=== PATIENT | female | born 1965 | race American Indian/Alaskan Native ===

== ENCOUNTER 2019-05-04 09:38 | Day surgery (SDC) | payer BC ==
[2019-05-04] MEDS ORDERED: MIDAZOLAM 2 MG/2 ML INJ IV NR (10:00)
[2019-05-04] MEDS ORDERED: LACTATED RINGERS 1,000 ML IV SCH (10:00)
--- NOTE | 2019-05-04 10:03 | Anesthesia Consultation ---
Anesthesia Consult and Med Hx Date of service: 05/04/19 - Airway Anesthetic Teeth Evaluation: Good ROM Head & Neck: Adequate Mental/Hyoid Distance: Adequate Mallampati Class: Class III Intubation Access Assessment: Possibly Difficult - Pulmonary Exam CTA: Yes - Cardiac Exam Cardiac Exam: RRR - Pre-Operative Health Status ASA Pre-Surgery Classification: ASA2 Proposed Anesthetic Plan: General - Pulmonary Hx Smoking: Yes (quit 2007) Hx Respiratory Symptoms: No Hx Sleep Apnea: No (NAVI PRE SCREEN HIGH RISK) - Cardiovascular System Hx Hypertension: No Hx Heart Attack/AMI: No - Central Nervous System CVA: No Hx Psychiatric Problems: No - Gastrointestinal Hx Gastroesophageal Reflux Disease: No - Endocrine Hx Renal Disease: No (hydronephrosis; denies hx renal insufficiency) Hx Liver Disease: No Hx Insulin Dependent Diabetes: No Hx Non-Insulin Dependent Diabetes: No Hx Thyroid Disease: No - Hematic Hx Anemia: No - Other Systems Hx Obesity: Yes (BMI 36.5) - Additional Comments Anesthesia Medical History Comments: No hx anesthetic complications. Has had GA before but unsure if she has received propofol or had reaction to propofol in the past.
--- NOTE | 2019-05-04 10:03 | Anesthesia Day of Surgery ---
Anesthesia Day of Surgery - Day of Surgery Patient Examined: Yes Patient H&P Reviewed: Yes Patient is NPO: Yes
[2019-05-04] MEDS ORDERED: HYDROmorphone 1 MG/1 ML INJ ONE (10:35)
[2019-05-04] MEDS ORDERED: PROPOFOL 200 MG/20 ML VIAL IV ONE (10:35)
[2019-05-04] MEDS ORDERED: LIDOCAINE MPF (2%) 20 MG/1 ML VIAL 5 ML ONE (10:37)
--- NOTE | 2019-05-04 11:40 | Discharge Summary ---
Short Stay Discharge Plan Activity: other Weight Bearing Status: Full Weight Bearing Diet: low fat, low cholesterol, low salt Special Instructions: other (inc fluids ) Durable Medical Equipment Needed Upon Discharge: other (has stent ) Follow up with: PRIMARY CAREMD [Primary Care Provider] - 7 Days JULIAN KANG MD [Staff Physician] - 14 Days
--- NOTE | 2019-05-04 11:41 | Post Operative Note ---
Date of procedure: 05/04/19 Pre-op diagnosis: hydro Post-op diagnosis: same Findings: same Procedure: cysto rpgs NO STENT PLACED Anesthesia: CARLOS Surgeon: JULIAN KANG Estimated blood loss: none Condition: stable Disposition: PACU
[2019-05-04] MEDS ORDERED: WATER FOR IRRIG STERILE 2000 ML IR ONE (12:02)
[2019-05-04] MEDS ORDERED: FUROSEMIDE 40 MG/4 ML INJ ONE (12:12)
--- NOTE | 2019-05-04 12:19 | Discharge Summary ---
Short Stay Discharge Plan Activity: other (NO STRAINING ) Weight Bearing Status: Full Weight Bearing Diet: low fat, low cholesterol, low salt Follow up with: JULIAN KANG MD [Staff Physician] - 14 Days PRIMARY CARE, [Primary Care Provider] - 7 Days
[2019-05-04] MEDS ORDERED: ONDANSETRON 4 MG/2 ML INJ ONE (12:21)
--- NOTE | 2019-05-04 12:28 | Operative Report ---
PREOPERATIVE DIAGNOSIS: Left hydronephrosis. POSTOPERATIVE DIAGNOSES: Left hydronephrosis with really no flank pain, mostly abdominal and pelvic pain. PROCEDURE: Cystoscopy, retrograde. Bimanual exam. SURGEON: Dr. Ontiveros. ANESTHESIA: General. FINDINGS: This is a woman who has had multiple surgeries, left kidney. She has moderate left hydronephrosis and delayed excretion left kidney. She now presents for retrograde to visualize the area of obstruction. DESCRIPTION OF PROCEDURE: The patient was brought to the operating room and placed on the operating table. Following induction of anesthesia, placed in lithotomy position, prepped and draped in usual sterile fashion. Cystourethroscopy showed a normal bladder. Excellent efflux from both sides. Retrograde showed narrowing right by the clips at the UPJ on the left side. There is a dilated renal pelvis, but the calices were preserved. 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 There was drainage. We saw the UPJ well. There were no lesions there. The patient tolerated the procedure well. Right side was also done, was normal. We were able to visualize both ureters well and at this point, we decided not to place a stent. No stent was placed because clinically she has no CVA tenderness. No fevers and chills and we did not want to cause more scarring in the left UPJ. The patient tolerated the procedure well. She has good function in that kidney and no stent was left. JOB# [id number] VAISHALI/BESSIE
[2019-05-04] MEDS: fentaNYL 100 MCG/2 ML INJ IV PRN ×2 (12:43→12:48)
--- NOTE | 2019-05-04 12:47 | Fluoroscopy Report ---
FLUOROSCOPY RETROGRADE UROGRAPHY HISTORY: Left hydronephrosis COMPARISON: CT abdomen pelvis without contrast dated 03/16/2019. FINDINGS: 27 seconds of fluoroscopy time was provided by radiology during retrograde urography by the urologist. 6 fluoroscopic images are presented. The right retrograde pyelogram is within normal limits. The left ureter is normal caliber and within normal limits. There appears to be mild pyelocaliectasis within the left kidney suggesting a possible stricture at the left ureteropelvic junction. No fillin g defect or obstructing stone is appreciated. Please correlate with the procedural report by Dr. Ontiveros. Signer Name: Moises Randolph Jr, MD Signed: 05/04/2019 12:43 PM Workstation Name: [id number]
[2019-05-04 16:57] VITALS: BP 122/62
--- NOTE | 2019-05-04 20:09 | Post Anesthesia Evaluation ---
- Post Anesthesia Evaluation Patient Participated: Yes Airway Patent: Yes Stable Respiratory Function: Yes Nausea/Vomiting: No Temp > 96.8F: Yes Pain Manageable: Yes Adequeate Hydration: Yes Anesthesia Complications: No Block Receding Appropriately: Not Applicable Patient on Ventilator: No
== END 2019-05-04 14:20 | disposition home or self-care (01) ==
LOC: OR 09:38
PROVIDERS: ATTEND Urology
DX: N13.30 Unspecified hydronephrosis (principal); E66.9 Obesity, unspecified; Z88.2 Allergy status to sulfonamides; Z88.0 Allergy status to penicillin; Z91.040 Latex allergy status; Z91.012 Allergy to eggs; Z91.041 Radiographic dye allergy status; Z87.891 Personal history of nicotine dependence; Z68.36 Body mass index [BMI] 36.0-36.9, adult; Z90.710 Acquired absence of both cervix and uterus; Z87.440 Personal history of urinary (tract) infections; Z98.890 Other specified postprocedural states
CPT/HCPCS: 52005; 74420; A4217; C1758; J1170; J1940; J1956; J2250; J2405; J2704; J3010; J7120; Q9967